=== PATIENT | male | born 1980 | race Caucasian/White ===

== ENCOUNTER 2016-10-26 08:55 | Emergency (ER) | payer SELFPAY ==
[~2016-10-26] VITALS: Ht 180.3 cm; Wt 76.5 kg
[~2016-10-26 08:55] MED LIST: ANTISOL30 AU; CORTI10A AU; OXYC15TA3 PO; OXYC30TA3 PO; PROM25SU8 PO; TRAM50 PO; XANA1TAB6 PO
[2016-10-26 08:59] VITALS: BP 108/77; PULSE 70; RESP 16; TEMP 98.1; O2SAT 98
[2016-10-26] MEDS ORDERED: TETRACAINE 0.5% OPTH SOLN 15 ML BTL LEFT EYE ONE (09:30)
[2016-10-26] MEDS ORDERED: FLUORESCEIN SOD 1 MG STRIP LEFT EYE ONE (09:30)
[2016-10-26] MEDS ORDERED: ERYTOIN10 LEFT EYE (09:56)
[2016-10-26] MEDS ORDERED: NORC5TAB PO (09:56)
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
== END 2016-10-26 10:10 | disposition home or self-care (01) ==
LOC: PHEFT 08:55
DX: S05.02XA Injury of conjunctiva and corneal abrasion without foreign body, left eye, initial encounter (principal); F17.210 Nicotine dependence, cigarettes, uncomplicated; X58.XXXA Exposure to other specified factors, initial encounter; Y93.9 Activity, unspecified; Y92.9 Unspecified place or not applicable; Y99.9 Unspecified external cause status
CPT/HCPCS: 99283

== ENCOUNTER 2017-09-08 17:25 | Emergency (ER) | payer OTHER ==
[~2017-09-08 17:25] MED LIST changes: -ANTISOL30 AU; -CORTI10A AU; +ERYTOIN10 LEFT EYE; +NORC5TAB PO; -OXYC15TA3 PO; -OXYC30TA3 PO; -PROM25SU8 PO; -TRAM50 PO; -XANA1TAB6 PO
[2017-09-08 17:26] VITALS: BP 122/81; PULSE 111; RESP 16; TEMP 98.2; O2SAT 97
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
[2017-09-08] MEDS ORDERED: CYCL10TA PO (20:07)
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
[2017-09-08] MEDS ORDERED: ACETAMINOPHEN 500 MG CPLT PO ONE (20:15)
[2017-09-08] MEDS ORDERED: CYCLOBENZAPRINE HCL 10 MG TAB PO ONE (20:15)
== END 2017-09-08 20:46 | disposition home or self-care (01) ==
LOC: NEPD 17:25
DX: S01.01XA Laceration without foreign body of scalp, initial encounter (principal); S16.1XXA Strain of muscle, fascia and tendon at neck level, initial encounter; V43.52XA Car driver injured in collision with other type car in traffic accident, initial encounter; Y92.410 Unspecified street and highway as the place of occurrence of the external cause; M54.9 Dorsalgia, unspecified; G89.29 Other chronic pain; F17.210 Nicotine dependence, cigarettes, uncomplicated; Z79.891 Long term (current) use of opiate analgesic
CPT/HCPCS: 12002; 70450; 71046; 72125

== ENCOUNTER 2017-09-11 22:42 | Emergency (ER) | payer OTHER ==
[~2017-09-11] VITALS: Ht 175.3 cm; Wt 77.0 kg
[~2017-09-11 22:42] MED LIST changes: +CYCL10TA PO
[2017-09-11] MEDS ORDERED: TRAM50TA PO (23:01)
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
== END 2017-09-11 23:33 | disposition home or self-care (01) ==
LOC: NEPD 22:42
DX: G44.319 Acute post-traumatic headache, not intractable (principal); F17.200 Nicotine dependence, unspecified, uncomplicated
CPT/HCPCS: 99283

== ENCOUNTER 2017-09-25 18:36 | Emergency (ER) | payer SELFPAY ==
[~2017-09-25 18:36] MED LIST changes: +TRAM50TA PO
== END 2017-09-25 19:11 | disposition left against medical advice (07) ==
LOC: NED 18:36
DX: Z48.02 Encounter for removal of sutures (principal); Z53.21 Procedure and treatment not carried out due to patient leaving prior to being seen by health care provider
CPT/HCPCS: 99281

== ENCOUNTER 2017-09-25 21:19 | Emergency (ER) | payer SELFPAY ==
[~2017-09-25] VITALS: Ht 170.2 cm; Wt 75.0 kg
[2017-09-25 21:43] VITALS: BP 132/77; PULSE 124; RESP 18; TEMP 98.5; O2SAT 98
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
== END 2017-09-25 22:55 | disposition home or self-care (01) ==
LOC: NEPD 21:19
DX: Z09 Encounter for follow-up examination after completed treatment for conditions other than malignant neoplasm (principal); Z48.02 Encounter for removal of sutures
CPT/HCPCS: 99281